=== PATIENT | female | born 2005 | race African-American/Black ===

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

== ENCOUNTER 2024-01-15 09:44 | Emergency (ER) | payer BC, OTHER ==
[2024-01-15 09:55] VITALS: BP 133/78; PULSE 78; RESP 17; TEMP 98.4; BMI 29.1
== END 2024-01-15 12:09 | disposition home or self-care (01) ==
LOC: JERFT 09:44
DX: U07.1 COVID-19 (principal); J02.9 Acute pharyngitis, unspecified; R09.81 Nasal congestion; R05.9 Cough, unspecified; R06.7 Sneezing
CPT/HCPCS: 99282-25